=== PATIENT | female | born 1985 | race Caucasian/White ===

== ENCOUNTER 2020-03-04 00:47 | Emergency (ER) | payer OTHER ==
[2020-03-04 00:58] VITALS: BP 143/92; PULSE 114; RESP 18; TEMP 98.3
[2020-03-04] MEDS ORDERED: IBUPROFEN 600 MG TAB PO STA (01:32)
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
[2020-03-04] MEDS ORDERED: TOPICAL SKIN ADHESIVE 1 EACH AMP TOPICAL ONE (02:35)
== END 2020-03-04 02:49 | disposition home or self-care (01) ==
LOC: EC 00:47 → EEVIPCON 00:47 → EC 02:49
DX: S02.2XXB Fracture of nasal bones, initial encounter for open fracture (principal); Y04.0XXA Assault by unarmed brawl or fight, initial encounter
CPT/HCPCS: 70450; 70486; 99284

== ENCOUNTER → 2025-04-21 | Outpatient (CLI) | payer OTHER ==
--- NOTE | 2025-04-21 13:43 | MM ---
Reason for Exam: Screening (asymptomatic). Patient History: Menarche at age 11. First Full-Term at age 24. Right ovary removed at age 20. Risk Values: Chelsea 5 year model risk: 0.6%. NCI Lifetime model risk: 11.1%. Tissue Density: The breasts are extremely dense, which lowers the sensitivity of mammography. Findings: Analyzed By CAD. Right breast: Asymmetry in the low view inferiorly 2.4 cm simple measuring 5 mm. Spot compression imaging with 3-D imaging both RCC or MLO and ML views recommended possible ultrasound. Left breast: There is no suspicious group of microcalcifications or new suspicious mass. Overall Assessment: Incomplete: need additional imaging evaluation, BI-RAD 0 Management: Diagnostic Mammogram of the right breast. [facility] will attempt to contact patient to return for supplemental views and ultrasound if indicated. Patient should continue monthly self-breast exams. A clinical breast exam by your physician is recommended on an annual basis. This exam should not preclude additional follow-up of suspicious palpable abnormalities. Note on Chelsea scores and lifetime risk: 1. A Chelsea score greater than 3% is considered moderate risk. If this is the case, consider specialist referral to assess eligibility for a risk reducing agent. 2. If overall lifetime risk for the development of breast cancer is 20% or higher, the patient may qualify for future screening with alternating mammogram and breast MRI. [facility], , 04/21/2025 1:39 PM. Electronically signed and approved by: Kadeem Elise DO
== END | disposition home or self-care (01) ==
LOC: RADMAMWWP 12:46
PROVIDERS: ATTEND Obstetrics & Gynecology Obstetrics
DX: Z12.31 Encounter for screening mammogram for malignant neoplasm of breast (principal); R92.343 Mammographic extreme density, bilateral breasts
CPT/HCPCS: 77067

== ENCOUNTER → 2025-04-28 | Outpatient (CLI) | payer OTHER ==
--- NOTE | 2025-04-28 15:37 | MM ---
Reason for Exam: Additional evaluation requested from abnormal screening. Last screening mammogram was performed less than 1 month ago. Patient History: Menarche at age 11. First Full-Term at age 24. Right ovary removed at age 20. Risk Values: Chelsea 5 year model risk: 0.6%. NCI Lifetime model risk: 11.1%. Tissue Density: Right: The breasts are extremely dense, which lowers the sensitivity of mammography. Findings: Analyzed By CAD. The questioned area of nodular asymmetric density subareolar MLO view does not persist on spot 3-D MLO or 3-D lateral views. Findings compatible with superimposition shadow. Overall Assessment: Benign, BI-RAD 2 Management: Screening Mammogram of both breasts in 1 year. Given the patient's extremely dense breast tissue, consideration can be given to supplementary screening with breast ultrasound. Results were given to the patient verbally at the time of exam. Patient should continue monthly self-breast exams. A clinical breast exam by your physician is recommended on an annual basis. This exam should not preclude additional follow-up of suspicious palpable abnormalities. Note on Chelsea scores and lifetime risk: 1. A Chelsea score greater than 3% is considered moderate risk. If this is the case, consider specialist referral to assess eligibility for a risk reducing agent. 2. If overall lifetime risk for the development of breast cancer is 20% or higher, the patient may qualify for future screening with alternating mammogram and breast MRI. [facility], , 04/28/2025 3:33 PM. Electronically signed and approved by: Alexandru Diaz M.D. Radiologist
== END | disposition home or self-care (01) ==
LOC: RADMAMWWP 14:57
PROVIDERS: ATTEND Obstetrics & Gynecology Obstetrics
DX: R92.8 Other abnormal and inconclusive findings on diagnostic imaging of breast (principal); R92.341 Mammographic extreme density, right breast
CPT/HCPCS: 77065; G0279; 77061